=== PATIENT | male | born 1980 | race American Indian/Alaskan Native ===

== ENCOUNTER 2024-10-25 11:34 | Emergency (ER) | payer OTHER, SELFPAY ==
[2024-10-25 11:37] VITALS: BP 144/91
--- NOTE | 2024-10-25 13:18 | ED.GENMED ---
History of Present Illness
General
Chief Complaint: Dental Problem
Time Seen by Provider: 10/25/24 12:43
History of Present Illness
History of Present Illness:
Patient is a 44-year-old man presenting to the emergency department with needing extraction for tooth #16. Patient states that for 5 days ago he went to his dentist attempted to pull the tooth but ultimately referred him to an oral surgeon for
extraction. Patient states that he called earlier today and thought that there was a oral surgeon here that could remove the tooth. No fevers or chills. No swelling. No drainage. He does state that the pain has been controlled.
Phy Exam
Physical Exam
Physical Exam:
GENERAL: in no acute distress, asleep
HEENT: normocephalic, extraocular movements intact, moist oral mucosa, tooth #16 without any significant swelling or tenderness. No obvious tooth fracture. No dentin or pulp exposed. No facial swelling
NECK: normal inspection
RESPIRATORY: no respiratory distress, clear to auscultation bilaterally
CARDIOVASCULAR: regular rate and rhythm
ABDOMEN/: soft, non-distended, non-tender to palpation, no rebound or guarding
EXTREMITIES: non-tender, no edema/swelling
NEUROLOGIC: awake and alert, moves all extremities
SKIN: warm
Course
Vital Signs
Initial and Last Documented VS:
Initial Vital Signs
Temp Pulse Resp BP Pulse Ox
97.9 F 90 16 144/91 98
10/25/24 11:37 10/25/24 11:37 10/25/24 11:37 10/25/24 11:37 10/25/24 11:37
Last Documented Vital Signs
Temp Pulse Resp BP Pulse Ox
97.9 F 90 16 144/91 98
10/25/24 11:37 10/25/24 11:37 10/25/24 11:37 10/25/24 11:37 10/25/24 11:37
MDM/Problems Addressed
Differential Diagnosis Includes:
Patient is a 44-year-old man presenting to the emergency department requesting extraction of tooth #16. Vitals are unremarkable and on exam patient with no significant swelling tenderness or signs of an abscess. He was asleep initially on my
evaluation and does appear comfortable. Discussed with patient that unfortunately we do not have oral surgery available for extraction. Patient upset that he outpatient oral surgeons have months long waiting time. I did discuss with patient
alternative options and locations. Will give patient our oral surgeons to call. At this time there is no emergent indication for tooth extraction. No signs of infection and initiate antibiotics. Will discharge at this time.
*Critical Care Note
Total Time (30-74mins, 75-104mins- exclusive of procedures): Not Applicable
ED Attending Note
-
Portions of this chart may have been created with voice recognition software.� Occasional wrong word or��sound alike� substitutions may have occurred due to the inherent limitations of voice recognition software.
Discharge Plan
Departure
Patient Disposition: Home (Routine Discharge)
Date of Disposition: 10/25/24
Time of Disposition: 13:17
Patient with high blood pressure during this ER visit?: No
Discharge Problem:
Tooth pain
Instructions: Dental Pain (DC)
Referrals:
Cristin Birch DDS [Active] -
Interventions
Interventions:
*Risk Screen - Suicide Last Done: 10/25/24 11:37
*Neglect/Abuse Screening Last Done: 10/25/24 11:37
Discharge Date and Time
Print Language: SYRIAC
== END 2024-10-25 13:41 | disposition home or self-care (01) ==
LOC: EMR 11:34
PROVIDERS: EMERGENCY PHYSICIAN Student in an Organized Health Care Education/Training Program; FAMILY PHYSICIAN Nurse Practitioner Family
DX: K08.89 Other specified disorders of teeth and supporting structures (principal)
CPT/HCPCS: 99281